=== PATIENT | male | born 1975 | race African-American/Black ===

== ENCOUNTER 2024-04-10 15:49 | Emergency (ER) | payer SELFPAY | END 2024-04-10 17:22 | disposition home or self-care (01) | LOC: ERS 15:49 | DX: J18.9 Pneumonia, unspecified organism (principal); E11.9 Type 2 diabetes mellitus without complications; F17.210 Nicotine dependence, cigarettes, uncomplicated | CPT/HCPCS: 36416; 71045; 87428; 93005 ==